=== PATIENT | female | born 1960 | race Caucasian/White ===

== ENCOUNTER → 2017-10-07 | Outpatient (CLI) | payer OTHER ==
[~2017-10-07] VITALS: Ht 165.1 cm; Wt 110.2 kg
[~2017-10-07] MED LIST: ACCUPRIL40 MG PO; HYDROCHLOROTHIA50 MG PO; OMEPRAZOLE20 MG PO; PROBIOTIC1 EAC3 PO; SYNTHROID125 MCG PO; TOPROL XL50 MG PO
== END | disposition home or self-care (01) ==
LOC: AMB 10:16
PROC: 0DJD8ZZ Inspection of Lower Intestinal Tract, Via Natural or Artificial Opening Endoscopic (ICD-10-PCS; principal; 2017-10-07)
DX: R10.31 Right lower quadrant pain (principal); Z80.0 Family history of malignant neoplasm of digestive organs; K57.30 Diverticulosis of large intestine without perforation or abscess without bleeding; K64.8 Other hemorrhoids
CPT/HCPCS: 93005